=== PATIENT | female | born 1960 ===

== ENCOUNTER 2022-04-20 06:05 | Day surgery (SDC) | payer OTHER ==
[~2022-04-20 06:05] MED LIST: AMBIEN10 MG PO; CLONAZEPAM0.5 M1 PO; HYDROCHLOROTHIA25 MG PO; NEURONTIN; SULFASALAZINE500 M1 PO; TOPROL XL25 M1 PO; ZANAFLEX2 M1 PO
[2022-04-20] MEDS ORDERED: ZITHROMAX500 MG PO (11:18)
[2022-04-20] MEDS ORDERED: IBU400 MG PO (11:18)
== END 2022-04-20 14:30 | disposition home or self-care (01) ==
LOC: CIR.AMB 06:05
PROVIDERS: ATTEND Obstetrics & Gynecology
DX: N95.0 Postmenopausal bleeding (principal); N84.0 Polyp of corpus uteri; I10 Essential (primary) hypertension; E78.5 Hyperlipidemia, unspecified